=== PATIENT | male | born 1990 | race Caucasian/White ===

== ENCOUNTER 2018-03-17 20:56 | Emergency (ER) | payer BC, OTHER ==
[~2018-03-17] VITALS: Ht 162.6 cm; Wt 61.2 kg
--- NOTE | 2018-03-17 21:22 | ED Chest Pain ---
General Chief Complaint: Chest Wall/Rib Pain Stated Complaint: RIB PAIN R SIDE Source: patient Exam Limitations: no limitations History of Present Illness Date Seen by Provider: Mar 17, 2018 Time Seen by Provider: 21:10 Initial Comments PT ARRIVES VIA POV FROM HOME C/O RIGHT ANTERIOR CHEST/RIB PAIN SINCE LAST Thursday03/11/18 STATES HE WAS USING A DRILL TO REMOVE A SCREW AND HAD DRILL PRESSED AGAINST RIGHT ANTERIOR CHEST, AND WHEN SCREW CAME OUT, THE DRILL CAME BACK AGAINST HIS CHEST AND HE "FELT A POP" IN HIS RIGHT UPPER CHEST STATES HE IS HAVING INCREASED PAIN IN THE AREA AND INCREASED PAIN ON BREATHING, AND HIS WHOLE RIGHT ANTERIOR CHEST HAS BEEN 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 TESFAYE Allergies and Home Medications Patient Home Medication List Home Medication List Reviewed: Yes Review of Systems Constitutional: no symptoms reported Respiratory: See HPI Cardiovascular: See HPI Gastrointestinal: No Symptoms Reported Genitourinary: No Symptoms Reported Musculoskeletal: see HPI Skin: no symptoms reported Psychiatric/Neurological: No Symptoms Reported Endocrine: No Symptoms Reported Hematologic/Lymphatic: No Symptoms Reported Past Ywzcesv-Qvvaaf-Xdpuuc Hx Patient Social History Alcohol Use: Past History (HISTORY OF HEAVY USE-MOSTLY ON WEEKENDS) Recreational Drug Use: No Smoking Status: Current Everyday Smoker (1 PPD) Type Used: Cigarettes (1 PPD) Recent Foreign Travel: No Contact w/Someone Who Travel: No Past Medical History Surgeries: Yes (RIGHT CARPAL TUNNEL) Orthopedic Respiratory: No Cardiac: Yes Hypertension Neurological: No Genitourinary: Yes Polycystic Kidney Disease Gastrointestinal: No Musculoskeletal: Yes (S/P RIGHT CARPAL TUNNEL SURGERY) Endocrine: No HEENT: No Cancer: No Psychosocial: No Integumentary: No Blood Disorders: No Physical Exam Vital Signs Vital Signs - First Documented 03/17/18 21:05 Temp 98.0 Pulse 74 Resp 18 B/P (MAP) 146/101 (116) Pulse Ox 97 Capillary Refill : General Appearance: No Apparent Distress, WD/WN, Other (REEKS OF CIGARETTES) Neck: Full Range of Motion, Normal Inspection, Non Tender, Supple, JVD Respiratory: Normal Breath Sounds, No Accessory Muscle Use, No Respiratory Distress, Other (TENDERNESS TO RIGHT UPPER ANTERIOR CHEST. NO EXTERNAL EVIDENCE OF TRAUMA. 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 Norm as Tested Skin: Normal Color, Warm/Dry; No Ecchymosis, No Erythema Progress/Results/Core Measures Results/Orders My Orders Orders - LEONCIO SANDERS DO Ct Chest Wo (03/17/18 21:15) Chest Pa/Lat (2 View) (03/17/18 21:15) Ribs, Right 2-3 Views (03/17/18 21:15) Vital Signs/I&O 03/17/18 03/17/18 21:05 22:24 Temp 98.0 98.0 Pulse 74 74 Resp 18 18 B/P (MAP) 146/101 (116) 146/101 (116) Pulse Ox [address] CHEST--NO ACUTE PROCESS, PER RADIOLOGIST REPORT @ 2204 Reviewed: Reviewed by Me Departure Impression Primary Impression: Contusion of right chest wall Disposition: HOME, SELF-CARE Condition: Stable Departure-Patient Inst. Referrals: HERON TESFAYE MD (PCP/Family) Primary Care Physician Patient Instructions: CHEST CONTUSION Add. Discharge Instructions: TYLENOL NEEDED FOR PAIN ALTERNATE ICE AND HEAT TO AREA AT 20 MINUTE INTERVALS FOLLOW UP WITH YOUR DR IN 1 WEEK IF NO BETTER All discharge instructions reviewed with patient and/or family. Voiced understanding. Images Torso/Trunk 1 - Mild, Tenderness LEONCIO SANDERS DO Mar 17, 2018 21:22
--- NOTE | 2018-03-17 22:02 | Diagnostic Imaging Report ---
PROCEDURE: CT chest without contrast. TECHNIQUE: Multiple contiguous axial images were obtained through the chest without the use of intravenous contrast. INDICATION: Patient felt shoulder pop using a drill. Shortness of breath. FINDINGS: Noncontrasted chest shows the lungs to be well-aerated. There are no infiltrates. No evidence of pneumothorax or pleural effusions. Heart is not enlarged. No mediastinal or hilar adenopathy. No evidence of rib fractures. Sagittal reformatted images of the thoracic spine show no fracture. IMPRESSION: Normal CT scan of the chest without contrast. Dictated by: Dictated on workstation # [id number]
[2018-03-17 22:24] VITALS: BP 146/101
--- NOTE | 2018-03-18 07:44 | Diagnostic Imaging Report ---
INDICATION: Pain. COMPARISON: None. FINDINGS: Two views of the chest are obtained. Heart size is normal. The pulmonary vessels appear unremarkable. There is no pneumothorax, mediastinal widening or pleural fluid. The lungs are clear. The osseous structures appear unremarkable. IMPRESSION: Negative chest. Dictated by: Dictated on workstation # [id number]
--- NOTE | 2018-03-18 08:20 | Diagnostic Imaging Report ---
INDICATION: Reese a pop with pain for several days. Increasing pain with breathing. TECHNIQUE: 3 views right ribs 10:20 PM. CORRELATION STUDY: None FINDINGS: There is no acute displaced right rib fracture. The right lung is clear without evidence of infiltrate, effusion or pneumothorax. IMPRESSION: 1. Negative for right rib fracture. Dictated by: Dictated on workstation # [id number]
== END 2018-03-17 22:30 | disposition home or self-care (01) ==
LOC: EDUNIT# 20:56 → ER 20:58
DX: S20.20XA Contusion of thorax, unspecified, initial encounter (principal); I10 Essential (primary) hypertension; F17.210 Nicotine dependence, cigarettes, uncomplicated; Z98.890 Other specified postprocedural states
CPT/HCPCS: 71046; 71100; 71250

== ENCOUNTER → 2022-04-25 | Outpatient (CLI) | payer BC ==
--- NOTE | 2022-04-25 10:18 | Diagnostic Imaging Report ---
PROCEDURE: CT abdomen and pelvis without contrast, 04/25/2022. TECHNIQUE: Multiple contiguous axial images were obtained through the abdomen and pelvis without the use of intravenous contrast. Auto Exposure Controls were utilized during the CT exam to meet ALARA standards for radiation dose reduction. INDICATION: Polycystic kidney disease since 2018. Recently more painful. Flank pain. COMPARISON: 02/04/2013 FINDINGS: The lung bases appear clear. The nonopacified abdominal viscera limited by lack of contrast with no acute abnormality appreciated in the liver. Small subcentimeter hypodensities in the left lobe of the liver too small for characterization. The spleen appears normal. The pancreas unremarkable. Gallbladder somewhat contracted but otherwise unremarkable. Adrenal glands normal. Within the kidneys, innumerable cystic lesions noted, left greater than right. Many of the lesions are hyperdense likely on the basis of a hemorrhagic cyst. One of the largest hyperdense area is seen along the superior pole of the left kidney measuring 2.5 cm in greatest dimension. This has increased in size since the prior examination. There are several prominent similar findings in the inferior pole of the kidney, the largest of which measures 2.2 cm. This has also increased slightly in size. There is no hydronephrosis. No nephrolithiasis appreciated. There are no ureteral stones. Appendix is normal. There is mild diverticular disease without evidence for acute diverticulitis. Remaining bowel loops unremarkable. There is no ascites. No free air. A small fat-containing umbilical hernia incidentally noted. There is no acute osseous abnormality. IMPRESSION: 1. Innumerable cystic lesions in both kidneys, left worse than right, many of which are hyperdense suggesting hemorrhagic cyst. However, given the lack of contrast a solid mass cannot be excluded. Either dedicated pre and postcontrast kidney CT versus sonography may provide further characterization, as clinically warranted. 2. Other findings, as above. Dictated by: Dictated on workstation # [id number]
== END ==
LOC: RAD 09:29
PROVIDERS: ATTEND Nurse Practitioner
DX: Q61.3 Polycystic kidney, unspecified (principal)
CPT/HCPCS: 74176

== ENCOUNTER → 2023-02-06 | Outpatient (CLI) | payer BC ==
--- NOTE | 2023-02-06 09:42 | Diagnostic Imaging Report ---
CLINICAL INDICATION: Patient with family history of cerebral aneurysm. History of polycystic kidney disease. Patient has headaches. EXAMS: MRA of the [place] performed without IV contrast using 3D [id number]. Multiple rotating 3-D MIP images were created. COMPARISON: MRI of the brain and MRA of the [place] of [place] without contrast dated 03/09/2015. FINDINGS: MRA [place] of [place]: MRA of the [place] shows no significant stenosis, dissection, vascular malformation, or aneurysm seen. The visualized portions of both ICAs are patent. The anterior cerebral arteries and their branches, middle cerebral arteries and their branches are unremarkable. The bilateral club manager, basilar artery, and vertebral arteries are unremarkable. Relatively codominant vertebral arteries are seen. The bilateral PICA are patent as visualized. MRA COW IMPRESSION: Unremarkable MRA of the [place] with no evidence of significant stenosis, dissection, vascular malformation, or aneurysm. Dictated by: Dictated on workstation # [id number]
== END ==
LOC: RAD 07:38
PROVIDERS: ATTEND Internal Medicine Nephrology
DX: Q61.3 Polycystic kidney, unspecified (principal); R51.9 Headache, unspecified; Z82.3 Family history of stroke
CPT/HCPCS: 70544